=== PATIENT | male | born 1995 | race Asian ===

== ENCOUNTER 2020-12-23 07:17 | Day surgery (SDC) | payer MEDICAID, SELFPAY ==
[~2020-12-23] VITALS: Ht 180.3 cm; Wt 55.3 kg
[2020-12-23] MEDS ORDERED: fentaNYL CITRATE/PF 100 MCG/2 ML AMP ONE ×2 (07:44→08:01)
[2020-12-23] MEDS ORDERED: MIDAZOLAM HCL 5 MG/5 ML VIAL ONE ×2 (07:45→08:01)
[2020-12-23] MEDS ORDERED: SIMETHICONE 40 MG/0.6 ML ML ONE (08:02)
[2020-12-23] MEDS ORDERED: fentaNYL CITRATE/PF 100 MCG/2 ML AMP IVP ONE (08:12)
[2020-12-23] MEDS ORDERED: MIDAZOLAM HCL 5 MG/5 ML VIAL IVP ONE (08:12)
[2020-12-23] MEDS ORDERED: DIPHENHYDRAMINE INJ 50 MG/ML VIAL IVP ONE (08:15)
[2020-12-23] MEDS ORDERED: DIPHENHYDRAMINE INJ 50 MG/ML VIAL ONE (08:42)
[2020-12-23 10:02] VITALS: BP_SYST 114
== END 2020-12-23 09:50 | disposition home or self-care (01) ==
LOC: SMU 07:17 → SDS 07:17
PROVIDERS: ATTEND Internal Medicine
DX: R10.12 Left upper quadrant pain (principal); K29.50 Unspecified chronic gastritis without bleeding; Z20.828 Contact with and (suspected) exposure to other viral communicable diseases; Z79.899 Other long term (current) drug therapy
CPT/HCPCS: 36415; 43239; 87081; 88305; 88312; 88313; 96365; 99152; J1200; J2250; J3010; J7030; U0003